=== PATIENT | female | born 1970 | race Caucasian/White ===

== ENCOUNTER → 2018-08-22 | Outpatient (CLI) | payer OTHER ==
[~2018-08-22] MED LIST: BUPR75 PO; METPRE4DP PO; Vistaril25 MG PO
== END | disposition home or self-care (01) ==
LOC: LAB SHORT 12:23 → PLD 12:23
DX: D06.1 Carcinoma in situ of exocervix (principal); R87.610 Atypical squamous cells of undetermined significance on cytologic smear of cervix (ASC-US); R87.810 Cervical high risk human papillomavirus (HPV) DNA test positive
CPT/HCPCS: 88305

== ENCOUNTER → 2018-09-26 | Outpatient (CLI) | payer OTHER | END | disposition home or self-care (01) | LOC: LAB SHORT 12:18 → PLD 12:18 | DX: R87.610 Atypical squamous cells of undetermined significance on cytologic smear of cervix (ASC-US) (principal); R87.810 Cervical high risk human papillomavirus (HPV) DNA test positive | CPT/HCPCS: 88305 ==

== ENCOUNTER → 2019-04-12 | Outpatient (CLI) | payer OTHER ==
[2019-04-16 14:06] LABS: HPV 16 Negative (Negative); HPV 18 Negative (Negative); HPV OTHER HR TYPES Negative (Negative)
== END | disposition home or self-care (01) ==
LOC: LAB 10:03 → LAB SHORT 10:03
PROVIDERS: Obstetrics & Gynecology
DX: R87.810 Cervical high risk human papillomavirus (HPV) DNA test positive (principal); R87.610 Atypical squamous cells of undetermined significance on cytologic smear of cervix (ASC-US)
CPT/HCPCS: 87624; 88142

== ENCOUNTER → 2019-08-29 | Outpatient (CLI) | payer OTHER ==
[2019-08-29 15:31] LABS: BASOPHILS ABSOLUTE AUTO 0.06 K/mm3 (0.00-0.23); BASOPHILS PERCENT AUTO 1 % (0-2); EOSINOPHILS ABSOLUTE AUTO 1.16 K/mm3 (0.00-0.68); EOSINOPHILS PERCENT AUTO 13 % (0-6); Hematocrit 41.2 % (33.0-51.0); Hemoglobin 14.4 g/dL (11.5-16.0); IMMATURE GRAN ABSOLUTE AUTO 0.05 K/mm3 (0.00-0.10); IMMATURE GRAN PERCENT AUTO 1 % (0-1); LYMPHOCYTES ABSOLUTE AUTO 2.31 K/mm3 (0.84-5.20); LYMPHOCYTES PERCENT AUTO 26 % (21-46); MONOCYTES ABSOLUTE AUTO 1.98 K/mm3 (0.16-1.47); MONOCYTES PERCENT AUTO 22 % (4-13); Mean Corpuscular HGB 35.9 pg (26.0-34.0); Mean Corpuscular Volume 103 fL (80-100); Mean Platelet Volume 10.4 fL (9.1-12.4); NEUTROPHILS ABSOLUTE AUTO 3.42 K/mm3 (1.96-9.15); NEUTROPHILS PERCENT AUTO 38 % (41-73); Platelet Count 261 K/mm3 (150-400); RDW Coefficient Variation 12.6 % (11.7-14.2); RDW Standard Deviation 47.7 fL (35.1-46.3); Red Blood Cell Count 4.01 M/mm3 (3.80-5.20); White Blood Cell Count 8.98 K/mm3 (4.00-11.30)
[2019-08-29 15:49] LABS: Alanine Aminotransfer (ALT/SGP 61 U/L (12-78); Albumin, Blood 4.3 g/dL (3.4-5.0); Alk Phos 81 U/L (40-126); Anion Gap 9 mmol/L (6-16); Aspartate Aminotrans (AST/SGOT 72 U/L (12-37); Bilirubin, Total 0.3 mg/dL (0.1-1.0); Blood Urea Nitrogen 6 mg/dL (8-24); Bun/Creatinine Ratio 9.7 (12.0-20.0); CO2, Blood 26 mmol/L (21-32); Calcium, Blood 9.2 mg/dL (8.5-10.1); Chloride, Blood 97 mmol/L (98-108); Creatinine, Blood 0.62 mg/dL (0.40-1.00); Globulin, Blood 4.1 g/dL (2.2-4.0); Glomerular Filtration Rate >60 (60-); Glucose, Blood 114 mg/dL (70-99); Potassium, Blood 3.5 mmol/L (3.5-5.5); Sodium, Blood 132 mmol/L (136-145); Total Protein, Blood 8.4 g/dL (6.4-8.2); Troponin I <0.017 ng/mL (0.000-0.040)
[2019-08-29 16:37] LABS: Thyroid Stimulating Hormone 1.721 uIU/mL (0.360-4.800)
== END | disposition home or self-care (01) ==
LOC: LAB EV 15:26 → LAB SHORT 15:26
PROVIDERS: Physician Assistant
DX: R07.89 Other chest pain (principal); R53.83 Other fatigue
CPT/HCPCS: 80053; 84443; 84484; 85025

== ENCOUNTER 2020-09-22 08:59 | Day surgery (SDC) | payer OTHER ==
[~2020-09-22] VITALS: Ht 167.6 cm; Wt 54.2 kg
[2020-09-22] MEDS ORDERED: LOSA50 PO (09:25)
[2020-09-22] MEDS ORDERED: OMEP20ER PO (09:25)
[2020-09-22] MEDS ORDERED: Aspir 8181 MG PO (09:26)
--- NOTE | 2020-09-22 11:03 | NUR ---
09/22/20 1103 Syl Moore PT. WITH EXP. WHEEZES T.O.. PT. IS A SMOKER & HAS A COUGH. PT. DENIES SOB. PT. ENC. TO STOP SMOKING, PT. VERBALIZES SHE HAS GOTTEN DOWN TO A HALF PACK OF CIGARETTES. PT. DENIES HAVING A SORE THROAT. PT. HAS CHRONIC BACK PAIN.
== END 2020-09-22 10:45 | disposition home or self-care (01) ==
LOC: ORSCSDS 08:59
PROVIDERS: Student in an Organized Health Care Education/Training Program
PROC: 0DB68ZX Excision of Stomach, Via Natural or Artificial Opening Endoscopic, Diagnostic (ICD-10-PCS; principal; 2020-09-22 10:30)
PROC: 0DB58ZX Excision of Esophagus, Via Natural or Artificial Opening Endoscopic, Diagnostic (ICD-10-PCS; principal; 2020-09-22 10:30)
DX: K22.70 Barrett's esophagus without dysplasia (principal); R13.10 Dysphagia, unspecified; K44.9 Diaphragmatic hernia without obstruction or gangrene; K29.70 Gastritis, unspecified, without bleeding; I10 Essential (primary) hypertension; F17.210 Nicotine dependence, cigarettes, uncomplicated; Z79.82 Long term (current) use of aspirin; Z79.899 Other long term (current) drug therapy
CPT/HCPCS: 88305; 88342; J2704; J7120

== ENCOUNTER → 2021-04-24 | Outpatient (CLI) | payer OTHER ==
[~2021-04-24] MED LIST changes: +Aspir 8181 MG PO; +LOSA50 PO; +OMEP20ER PO
[2021-04-24 12:50] LABS: Hematocrit 32.1 % (33.0-51.0); Hemoglobin 11.2 g/dL (11.5-16.0)
== END | disposition home or self-care (01) ==
LOC: LAB SHORT 12:45 → LAB 12:45
PROVIDERS: Chiropractor
DX: R04.0 Epistaxis (principal)
CPT/HCPCS: 85014; 85018

== ENCOUNTER 2022-05-27 09:44 | Inpatient (IN) | payer OTHER ==
[~2022-05-27 09:44] MED LIST changes: -FOLI1 PO; -Norco 5-325 Ta1 EACH PO; -ONDA4 PO; -PANT40 PO; -VITAMIN B-1100 MG PO
[2022-06-02] MEDS ORDERED: FOLI1 PO (12:17)
[2022-06-02] MEDS ORDERED: PANT40 PO (12:17)
[2022-06-02] MEDS ORDERED: ONDA4 PO (12:18)
[2022-06-02] MEDS ORDERED: Norco 5-325 Ta1 EACH PO (12:18)
[2022-06-02] MEDS ORDERED: VITAMIN B-1100 MG PO (12:18)
== END 2022-06-02 14:06 | disposition home or self-care (01) | DRG 871 ==
DX: A41.9 Sepsis, unspecified organism (principal); J18.9 Pneumonia, unspecified organism; K85.90 Acute pancreatitis without necrosis or infection, unspecified; E87.1 Hypo-osmolality and hyponatremia; N17.9 Acute kidney failure, unspecified; Z20.822 Contact with and (suspected) exposure to COVID-19; I10 Essential (primary) hypertension; Z23 Encounter for immunization; F10.20 Alcohol dependence, uncomplicated; I95.9 Hypotension, unspecified; K70.0 Alcoholic fatty liver; K22.70 Barrett's esophagus without dysplasia; E83.42 Hypomagnesemia; R91.1 Solitary pulmonary nodule; F17.210 Nicotine dependence, cigarettes, uncomplicated; Z71.6 Tobacco abuse counseling; Z98.51 Tubal ligation status; Z98.890 Other specified postprocedural states; Z79.82 Long term (current) use of aspirin; Z79.899 Other long term (current) drug therapy

== ENCOUNTER → 2022-05-27 | Outpatient (CLI) | payer OTHER ==
[~2022-05-27] MED LIST changes: +FOLI1 PO; +Norco 5-325 Ta1 EACH PO; +ONDA4 PO; +PANT40 PO; +VITAMIN B-1100 MG PO
[2022-05-27 08:44] LABS: BASOPHILS PERCENT AUTO 1 % (0-2); EOSINOPHILS ABSOLUTE AUTO 0.02 K/mm3 (0.00-0.68); EOSINOPHILS PERCENT AUTO 0 % (0-6); Hematocrit 39.8 % (33.0-51.0); Hemoglobin 14.5 g/dL (11.5-16.0); IMMATURE GRAN ABSOLUTE AUTO 0.36 K/mm3 (0.00-0.10); IMMATURE GRAN PERCENT AUTO 2 % (0-1); LYMPHOCYTES ABSOLUTE AUTO 1.33 K/mm3 (0.84-5.20); LYMPHOCYTES PERCENT AUTO 6 % (21-46); MONOCYTES ABSOLUTE AUTO 1.88 K/mm3 (0.16-1.47); MONOCYTES PERCENT AUTO 9 % (4-13); Mean Corpuscular HGB 36.4 pg (26.0-34.0); Mean Corpuscular HGB Conc 36.4 g/dL (31.5-36.5); Mean Corpuscular Volume 100 fL (80-100); Mean Platelet Volume 11.2 fL (9.1-12.4); NEUTROPHILS ABSOLUTE AUTO 18.13 K/mm3 (1.96-9.15); NEUTROPHILS PERCENT AUTO 83 % (41-73); Platelet Count 184 K/mm3 (150-400); RDW Coefficient Variation 12.2 % (11.7-14.2); RDW Standard Deviation 45.3 fL (35.1-46.3); Red Blood Cell Count 3.98 M/mm3 (3.80-5.20); White Blood Cell Count 21.82 K/mm3 (4.00-11.30)
[2022-05-27 09:00] LABS: Albumin, Blood 3.7 g/dL (3.4-5.0); Albumin/Globulin Ratio 0.8 (0.8-1.8); Bilirubin, Total 0.9 mg/dL (0.1-1.0); Bun/Creatinine Ratio 26.3 (12.0-20.0); Calcium, Blood 9.3 mg/dL (8.5-10.1); Creatinine, Blood 2.32 mg/dL (0.40-1.00); Globulin, Blood 4.6 g/dL (2.2-4.0); Total Protein, Blood 8.3 g/dL (6.4-8.2)
== END | disposition home or self-care (01) ==
LOC: LAB SHORT 08:39 → LAB 08:39
PROVIDERS: Physician Assistant
DX: R06.00 Dyspnea, unspecified (principal)
CPT/HCPCS: 80053; 83690; 84484; 85025

== ENCOUNTER 2022-06-28 00:55 | Emergency (ER) | payer OTHER ==
[~2022-06-28] VITALS: Ht 167.6 cm; Wt 56.2 kg
[~2022-06-28 00:55] MED LIST changes: +FOLI1 PO; +Norco 5-325 Ta1 EACH PO; +ONDA4 PO; +PANT40 PO; +VITAMIN B-1100 MG PO
[2022-06-28] MEDS ORDERED: Prednisone20 MG PO (02:50)
== END 2022-06-28 03:08 | disposition home or self-care (01) ==
LOC: ER 00:55
DX: L50.9 Urticaria, unspecified (principal); F17.210 Nicotine dependence, cigarettes, uncomplicated; Z79.82 Long term (current) use of aspirin; Z79.52 Long term (current) use of systemic steroids; Z79.899 Other long term (current) drug therapy
CPT/HCPCS: J2930

== ENCOUNTER → 2022-07-15 | Outpatient (CLI) | payer OTHER ==
[~2022-07-15] MED LIST changes: +Prednisone20 MG PO
[2022-07-22 11:11] LABS: M-SPIKE, % Not Observed % (Not Observed); PROTEIN,TOTAL,URINE 5.8 mg/dL (Not Estab.)
== END ==
LOC: LAB SHORT 10:45 → LAB 10:45 → LAB SHORT 11:23
PROVIDERS: Physician Assistant
DX: D72.829 Elevated white blood cell count, unspecified (principal)
CPT/HCPCS: 84156; 84166

== ENCOUNTER → 2022-11-18 | Outpatient (CLI) | payer OTHER ==
[2022-11-23 15:12] LABS: HPV 16 Negative (Negative); HPV 18 Negative (Negative); HPV OTHER HR TYPES Negative (Negative)
== END | disposition home or self-care (01) ==
LOC: LAB 09:33 → RAD SHORT 09:33
PROVIDERS: Obstetrics & Gynecology
DX: Z01.419 Encounter for gynecological examination (general) (routine) without abnormal findings (principal)
CPT/HCPCS: 87624; G0145

== ENCOUNTER 2023-05-03 17:04 | Emergency (ER) | payer OTHER ==
[~2023-05-03] VITALS: Ht 167.6 cm; Wt 54.4 kg
[2023-05-03] MEDS ORDERED: Percocet 5-3251 EACH PO (20:27)
[2023-05-03] MEDS ORDERED: ONDA4ODT MM (20:27)
[2023-05-03 21:05] VITALS: BP 128/81
== END 2023-05-03 21:06 | disposition home or self-care (01) ==
LOC: ER 17:04
DX: S32.592A Other specified fracture of left pubis, initial encounter for closed fracture (principal); S32.10XA Unspecified fracture of sacrum, initial encounter for closed fracture; F17.200 Nicotine dependence, unspecified, uncomplicated; W17.89XA Other fall from one level to another, initial encounter
CPT/HCPCS: 72192; 73502; 96374; 99284-25; A9270; J3010

== ENCOUNTER 2023-06-24 20:46 | Emergency (ER) | payer OTHER ==
[~2023-06-24] VITALS: Ht 167.6 cm; Wt 55.8 kg
[~2023-06-24 20:46] MED LIST changes: +ONDA4ODT MM; +Percocet 5-3251 EACH PO
[2023-06-25] MEDS ORDERED: Ibuprofen600 MG PO (02:14)
[2023-06-25 05:15] VITALS: BP 131/81
== END 2023-06-25 05:43 | disposition home or self-care (01) ==
LOC: ER 20:46
DX: S82.142A Displaced bicondylar fracture of left tibia, initial encounter for closed fracture (principal); W01.10XA Fall on same level from slipping, tripping and stumbling with subsequent striking against unspecified object, initial encounter; Z79.899 Other long term (current) drug therapy; Z79.82 Long term (current) use of aspirin; Z79.52 Long term (current) use of systemic steroids; F17.200 Nicotine dependence, unspecified, uncomplicated
CPT/HCPCS: 73564; 73590; 73700; 96374; 96375; 96376; 99284-25; J1885; J3010

== ENCOUNTER → 2024-01-05 | Outpatient (CLI) | payer OTHER ==
[~2024-01-05] MED LIST changes: +Ibuprofen600 MG PO
[2024-01-16 10:29] LABS: HPV HIGH RISK BY TMA Not Detected; HPV SOURCE Cervical/Vag
== END ==
LOC: LAB SHORT 09:28 → LAB 09:28
PROVIDERS: Obstetrics & Gynecology
DX: Z01.419 Encounter for gynecological examination (general) (routine) without abnormal findings (principal)
CPT/HCPCS: 87624; G0123

== ENCOUNTER 2024-10-17 06:16 | Day surgery (SDC) | payer OTHER ==
[2024-10-17] VITALS (10 sets, daily range): BP systolic 108–158; BP diastolic 73–94
[~2024-10-17 06:16] MED LIST changes: +CYCL0.05OP BOTHEYES; +LOSARTAN POTAS100 M1 PO
[2024-10-17] MEDS ORDERED: Lactated Ringer's 1,000 ML IV SCH (06:50)
[2024-10-17] MEDS ORDERED: CeFAZolin Sodium 2,000 MG in NS 100 ML IV SCH (06:50)
[2024-10-17] MEDS ORDERED: CeFAZolin Sodium 2,000 MG VIAL ONE (06:52)
[2024-10-17] MEDS ORDERED: Lidocaine HCl 1% 30 ML SDV ONE (06:56)
[2024-10-17] MEDS ORDERED: propofoL 60 ML IV ONE (07:10)
[2024-10-17] MEDS ORDERED: Bupivacaine 0.5% HCl 5 MG/ML 30MLVIAL ONE (07:27)
[2024-10-17] MEDS ORDERED: FentaNYL Citrate 50 MCG/ML 2 ML Injection ONE (07:34)
--- NOTE | 2024-10-17 07:34 | NUR ---
History, Chart, Medications and Allergies reviewed before start of procedure.Patient confirms NPO status and agrees with scheduled surgery. Pre-Op teaching done. Pt verbalizes understanding. AT BEDSIDE, PT TEARY EYED. PT LEFT DENTURES AT HOME
[2024-10-17] MEDS ORDERED: propofoL 20 ML IV ONE (07:53)
[2024-10-17] MEDS ORDERED: Dexamethasone Sod Phos 10 MG/ML 1ML VIAL ONE (07:59)
[2024-10-17] MEDS ORDERED: Ondansetron HCl 2 MG / ML 2ML Vial ONE (07:59)
[2024-10-17] MEDS ORDERED: OxyCODONE 5 mg/Acetamin 325 mg TABLET PO PRN ×2 (09:25→09:50)
[2024-10-17] MEDS ORDERED: Ondansetron HCl 2 MG / ML 2ML Vial IV PRN (09:30)
[2024-10-17] MEDS ORDERED: FentaNYL Citrate 50 MCG/ML 2 ML Injection IV PRN ×2 (09:30→09:35)
[2024-10-17] MEDS ORDERED: HYDROmorphone HCl/Pf 1MG SYR IV PRN ×2 (09:30→09:35)
--- NOTE | 2024-10-17 10:25 | NUR ---
REVIEWED DISCHARGE INSTRUCTIONS WITH PT AND HER SPOUSE NANE-BOTH VERBALIZE UNDERSTANDING. PT DISCHARGED TO HOME-OUT VIA WHEELCHAIR WITH RX, DISCHARGE INSTRUCTIONS, AND BELONGINGS ON HAND.
== END 2024-10-17 10:25 | disposition home or self-care (01) ==
LOC: ORSCMMR 06:16 → ORD 07:30 → ORSCMMR 07:30
DX: C34.90 Malignant neoplasm of unspecified part of unspecified bronchus or lung (principal); R91.8 Other nonspecific abnormal finding of lung field; J44.9 Chronic obstructive pulmonary disease, unspecified; I10 Essential (primary) hypertension; F17.210 Nicotine dependence, cigarettes, uncomplicated; Z79.82 Long term (current) use of aspirin; F32.A Depression, unspecified; F41.9 Anxiety disorder, unspecified; Z79.899 Other long term (current) drug therapy
CPT/HCPCS: 77001; 93005; 93010; A9270; C1788; J0690; J1100; J1642; J2405; J2704; J3010; J7120

== ENCOUNTER 2024-10-25 15:06 | Emergency (ER) | payer OTHER ==
[~2024-10-25] VITALS: Ht 167.6 cm; Wt 56.2 kg
[2024-10-25 19:34] LABS: BASOPHILS PERCENT AUTO 1 % (0-2); EOSINOPHILS ABSOLUTE AUTO 0.06 K/mm3 (0.00-0.68); EOSINOPHILS PERCENT AUTO 1 % (0-6); Hematocrit 32.7 % (33.0-51.0); IMMATURE GRAN ABSOLUTE AUTO 0.04 K/mm3 (0.00-0.10); IMMATURE GRAN PERCENT AUTO 1 % (0-1); LYMPHOCYTES PERCENT AUTO 25 % (21-46); MONOCYTES ABSOLUTE AUTO 0.76 K/mm3 (0.16-1.47); MONOCYTES PERCENT AUTO 10 % (4-13); Mean Corpuscular HGB 34.4 pg (26.0-34.0); Mean Corpuscular HGB Conc 33.6 g/dL (31.5-36.5); Mean Corpuscular Volume 102 fL (80-100); Mean Platelet Volume 9.1 fL (9.1-12.4); NEUTROPHILS ABSOLUTE AUTO 5.04 K/mm3 (1.96-9.15); NEUTROPHILS PERCENT AUTO 63 % (41-73); Platelet Count 331 K/mm3 (150-400); RDW Coefficient Variation 15.1 % (11.7-14.2); RDW Standard Deviation 57.1 fL (35.1-46.3)
[2024-10-25 19:42] LABS: Bun/Creatinine Ratio 20.3 (12.0-20.0); Calcium, Blood 8.9 mg/dL (8.5-10.1); Creatinine, Blood 0.69 mg/dL (0.40-1.00); Potassium, Blood 4.2 mmol/L (3.5-5.5)
[2024-10-25 20:06] VITALS: BP 121/86
== END 2024-10-25 20:07 | disposition home or self-care (01) ==
LOC: ER 15:06
PROVIDERS: Emergency Medicine
DX: Z45.2 Encounter for adjustment and management of vascular access device (principal); F17.200 Nicotine dependence, unspecified, uncomplicated; Z71.6 Tobacco abuse counseling; Z79.899 Other long term (current) drug therapy; Z79.1 Long term (current) use of non-steroidal anti-inflammatories (NSAID); Z79.890 Hormone replacement therapy
CPT/HCPCS: 71045; 80048; 85025; 99284-25

== ENCOUNTER 2024-11-21 21:31 | Inpatient (IN) | payer OTHER ==
[~2024-11-21] VITALS: Ht 165.1 cm; Wt 53.4 kg
[~2024-11-21 21:31] MED LIST changes: -LOSARTAN POTAS100 M1 PO
[2024-11-21] MEDS ORDERED: Ondansetron HCl 2 MG / ML 2ML Vial IV PRN ×2 (21:45→23:35)
[2024-11-21 21:51] LABS: BASOPHILS ABSOLUTE AUTO 0.07 K/mm3 (0.00-0.23); BASOPHILS PERCENT AUTO 0 % (0-2); EOSINOPHILS PERCENT AUTO 0 % (0-6); Hematocrit 29.5 % (33.0-51.0); Hemoglobin 10.4 g/dL (11.5-16.0); IMMATURE GRAN ABSOLUTE AUTO 1.11 K/mm3 (0.00-0.10); IMMATURE GRAN PERCENT AUTO 6 % (0-1); LYMPHOCYTES ABSOLUTE AUTO 0.47 K/mm3 (0.84-5.20); LYMPHOCYTES PERCENT AUTO 3 % (21-46); MONOCYTES ABSOLUTE AUTO 0.21 K/mm3 (0.16-1.47); MONOCYTES PERCENT AUTO 1 % (4-13); Mean Corpuscular HGB 35.4 pg (26.0-34.0); Mean Corpuscular HGB Conc 35.3 g/dL (31.5-36.5); Mean Corpuscular Volume 100 fL (80-100); Mean Platelet Volume 8.8 fL (9.1-12.4); NEUTROPHILS PERCENT AUTO 90 % (41-73); Platelet Count 231 K/mm3 (150-400); RDW Coefficient Variation 14.1 % (11.7-14.2); Red Blood Cell Count 2.94 M/mm3 (3.80-5.20); White Blood Cell Count 18.06 K/mm3 (4.00-11.30)
[2024-11-21 22:04] LABS: Albumin, Blood 3.2 g/dL (3.4-5.0); Albumin/Globulin Ratio 0.8 (0.8-1.8); Bilirubin, Total 0.2 mg/dL (0.1-1.0); Bun/Creatinine Ratio 21.5 (12.0-20.0); Calcium, Blood 7.5 mg/dL (8.5-10.1); Creatinine, Blood 0.61 mg/dL (0.40-1.00); Potassium, Blood 4.1 mmol/L (3.5-5.5); Total Protein, Blood 7.2 g/dL (6.4-8.2)
[2024-11-21] MEDS ORDERED: Morphine Sulfate 4 MG/1 ML Injection IV ONE (22:05)
[2024-11-21 22:26] LABS: BAND PERCENT MAN 2 % (0-8); BASOPHILS PERCENT MAN 0 % (0-2); EOSINOPHILS ABSOLUTE MAN 0.18 K/mm3 (0.00-0.68); EOSINOPHILS PERCENT MAN 1 % (0-6); LYMPHOCYTES ABSOLUTE MAN 0.72 K/mm3 (0.84-5.20); LYMPHOCYTES PERCENT MAN 4 % (21-46); METAMYELOCYTE ABSOLUTE MAN 0.18 K/mm3 (0.00-0.00); METAMYELOCYTE PERCENT MAN 1 % (0-0); MONOCYTES ABSOLUTE MAN 0.36 K/mm3 (0.16-1.47); MONOCYTES PERCENT MAN 2 % (4-13); MYELOCYTE ABSOLUTE MAN 0.36 K/mm3 (0.00-0.00); MYELOCYTE PERCENT MAN 2 % (0-0); NEUTROPHILS ABSOLUTE MAN 16.25 K/mm3 (1.96-9.15); SEG NEUTROPHILS PERCENT MAN 88 % (41-73); TOTAL CELLS COUNTED 100
[2024-11-21] MEDS ORDERED: Aspirin 325 MG Tab PO ONE (22:45)
[2024-11-21] MEDS ORDERED: Dose Adjust by Pharmacy XX STA (23:07)
[2024-11-21] MEDS ORDERED: Heparin Sodium 5000 Units/ML 1ML MDV IV ONE (23:10)
[2024-11-21] MEDS ORDERED: Heparin Sodium,Porcine/0.5 NS 500 ML IV SCH (23:10)
[2024-11-21] MEDS ORDERED: Morphine Sulfate 4 MG/1 ML Injection IV PRN (23:15)
[2024-11-21] MEDS ORDERED: Nitroglycerin 0.4 MG SUBL SL PRN (23:15)
[2024-11-21] MEDS ORDERED: Naloxone HCl 0.4MG / ML 1ML Vial IV PRN (23:15)
[2024-11-21] MEDS ORDERED: Acetaminophen 325 MG TABLET PO PRN (23:20)
[2024-11-21 23:24] LABS: Anti-Xa UFH, PHA Monitoring <0.10 IU/mL; International Normalized Ratio 1.03
[2024-11-21] MEDS ORDERED: NS 1,000 ML IV SCH (23:26)
[2024-11-22] VITALS (8 sets, daily range): BP systolic 108–149; BP diastolic 79–111
[2024-11-22 02:36] LABS: BASOPHILS ABSOLUTE AUTO 0.08 K/mm3 (0.00-0.23); BASOPHILS PERCENT AUTO 0 % (0-2); EOSINOPHILS PERCENT AUTO 0 % (0-6); Hematocrit 28.2 % (33.0-51.0); IMMATURE GRAN ABSOLUTE AUTO 0.89 K/mm3 (0.00-0.10); IMMATURE GRAN PERCENT AUTO 4 % (0-1); LYMPHOCYTES ABSOLUTE AUTO 0.66 K/mm3 (0.84-5.20); LYMPHOCYTES PERCENT AUTO 3 % (21-46); MONOCYTES ABSOLUTE AUTO 1.58 K/mm3 (0.16-1.47); MONOCYTES PERCENT AUTO 8 % (4-13); Mean Corpuscular HGB 35.2 pg (26.0-34.0); Mean Corpuscular HGB Conc 35.5 g/dL (31.5-36.5); Mean Corpuscular Volume 99 fL (80-100); Mean Platelet Volume 9.2 fL (9.1-12.4); NEUTROPHILS ABSOLUTE AUTO 17.46 K/mm3 (1.96-9.15); NEUTROPHILS PERCENT AUTO 85 % (41-73); Platelet Count 204 K/mm3 (150-400); RDW Coefficient Variation 13.8 % (11.7-14.2); RDW Standard Deviation 49.7 fL (35.1-46.3); Red Blood Cell Count 2.84 M/mm3 (3.80-5.20); White Blood Cell Count 20.67 K/mm3 (4.00-11.30)
[2024-11-22 02:48] LABS: Alanine Aminotransfer (ALT/SGP 18 U/L (12-78); Albumin/Globulin Ratio 0.8 (0.8-1.8); Alk Phos 81 U/L (50-136); Anion Gap 13 mmol/L (3-11); Aspartate Aminotrans (AST/SGOT 23 U/L (12-37); Bilirubin, Total 0.1 mg/dL (0.1-1.0); Blood Urea Nitrogen 12 mg/dL (8-24); Bun/Creatinine Ratio 21.4 (12.0-20.0); CHOL/HDL RATIO 1.7; CO2, Blood 20 mmol/L (21-32); Calcium, Blood 7.2 mg/dL (8.5-10.1); Chloride, Blood 101 mmol/L (98-108); Cholesterol 173 mg/dL (50-200); Creatinine, Blood 0.56 mg/dL (0.40-1.00); Globulin, Blood 3.6 g/dL (2.2-4.0); Glomerular Filtration Rate 107 (60-); Glucose, Blood 154 mg/dL (70-99); HDL Cholesterol 101 mg/dL (>39); LDL/HDL RATIO 0.6; Low Density Lipoprotein Chol 61 mg/dL (0-110); Potassium, Blood 3.9 mmol/L (3.5-5.5); Sodium, Blood 130 mmol/L (136-145); Thyroid Stimulating Hormone 0.481 uIU/mL (0.360-4.800); Total Protein, Blood 6.6 g/dL (6.4-8.2); Triglycerides 53 mg/dL (30-160); Very Low Density Lipoprot Chol 10 mg/dL (6-32)
[2024-11-22 03:18] LABS: Magnesium, Blood 0.5 mg/dL (1.6-2.4)
[2024-11-22] MEDS ORDERED: Magnesium Sulf 2 GM/Water 50ML 50 ML IV ONE (03:25)
[2024-11-22] MEDS ORDERED: Albuterol 2.5 MG/3 ML VIAL INH PRN (04:30)
[2024-11-22] MEDS ORDERED: Pantoprazole Sodium 40 MG Injection IV SCH (06:00)
--- NOTE | 2024-11-22 06:46 | NUR ---
SHIFT SUMMARY PT A/OX4, ABLE TO MAKE NEEDS KNOWN AND FOLLOWING COMMANDS. ARRIVED ACUTELY ETOH INTOXICATED. BP HYPERTENSIVE, ON TELE, SR TO ST AT 90-110S. PT REPORTING CHEST PRESSURE THAT RADIATES TO HER BACK, WORSE WITH MOVEMENT OR EXERTION. SPO2 > 92% ON RA, CURRENTLY GETTING TREATED FOR LUNG CA. MAGNESIUM CRITICALLY LOW AT 0.5, MEDICATED PER EMAR. HOSPITALIST FEELS CARDIOLOGY CONSULT NOT NEEDED AT THIS TIME GIVEN MAG LEVEL. HEPARIN STILL INFUSING PER EMAR. TRENDING TROPONINS. 1P ASSIST TO [facility]. NO SIGNIFICANT EVENTS SINCE ADMISSION. WILL REPORT TO ONCOMING NURSE.
--- NOTE | 2024-11-22 06:46 | NUR ---
THIS RN HAS REVIEWED AUTO CRANE DRIVER'S DOCUMENTATION AND AGREES.
[2024-11-22] MEDS ORDERED: Clarify Drug Order XX ONE (07:00)
[2024-11-22 07:03] LABS: Magnesium, Blood 1.8 mg/dL (1.6-2.4); Percent Saturation 36.2 % (15.0-50.0)
[2024-11-22] MEDS ORDERED: Atorvastatin 40 MG Tab PO SCH (09:00)
[2024-11-22] MEDS ORDERED: Docusate Sodium 100 MG Cap PO SCH (09:00)
[2024-11-22] MEDS ORDERED: Losartan Potassium 50 MG Tab PO SCH (09:00)
[2024-11-22] MEDS ORDERED: Aspirin 81 MG Chew PO SCH (09:00)
[2024-11-22] MEDS ORDERED: LORazepam 2 MG/ML 1ML Injection IV PRN (12:20)
[2024-11-22] MEDS ORDERED: LORazepam 1 MG Tab PO PRN (12:20)
[2024-11-22] MEDS ORDERED: Thiamine HCl 100 MG Tab PO SCH (13:00)
[2024-11-22] MEDS ORDERED: Folic Acid 1 MG TAB PO SCH (13:00)
[2024-11-22] MEDS ORDERED: Colchicine 0.6 MG TAB PO SCH (13:00)
--- NOTE | 2024-11-22 18:10 | NUR ---
END OF SHIFT SUMMARY REPORT A&OX4, GCS15, PUPILS PERRLA. MOTOR FUNCTION INTACT. VERBAL RESPONSES TO QUESTIONS ARE APPROPRIATE. PT ADMITS TO ETOH USE, LAST DRINK WAS 11/21/2024 APROX 1330; REPORTS HAVING ABOUT 4OZ OF TEQUILA. CIWA SCORES MAINTAINED AT 3. PT IS SR-ST 90'S - 110'S. PERICARDIAL FRICTION RUB HEARD ON AUSCULTATION. PT REPORTS INTERMITTENT CHEST PAIN THAT IS RESOLVED WITH MEDICATIONS ORDERED IN EMAR, REPOSITIONING, AND DISTRACTION. ATTEMPTED TO APPLY SUPPLEMENTAL O2 VIA NC TO HELP WITH CHEST PAIN BUT PT DID NOT TOLERATE THE SMELL OF CANNULA. PT O2 MAINTAINED AT >93% RA. PT HAS EXPIRATORY WHEEZE HEARD ON AUSCULTATION OF LUNGS. PT HAS A NONPRODUCTIVE WET COUGH. PT IS A 1P SBA AND USES THE COMMODE AT BEDSIDE. ECHO AND CARDIOLOGY CONSULT COMPLETED TODAY 11/22/2024. CARDIOLOGY STATES NO SURGICAL INTERVENSION AND PT WAS STARTED ON MEDICAITONS FOR PERICARDITIS. BED IS IN THE LOWEST POSITION WITH CALL LIGHT IN REACH AND BED ALARM ON. SEE NOTES FOR ANY UPDATES.
[2024-11-23] VITALS (7 sets, daily range): BP systolic 105–139; BP diastolic 75–100
[2024-11-23 04:15] LABS: BASOPHILS ABSOLUTE AUTO 0.02 K/mm3 (0.00-0.23); BASOPHILS PERCENT AUTO 0 % (0-2); EOSINOPHILS PERCENT AUTO 0 % (0-6); Hematocrit 28.8 % (33.0-51.0); IMMATURE GRAN ABSOLUTE AUTO 0.24 K/mm3 (0.00-0.10); IMMATURE GRAN PERCENT AUTO 3 % (0-1); LYMPHOCYTES ABSOLUTE AUTO 1.06 K/mm3 (0.84-5.20); LYMPHOCYTES PERCENT AUTO 12 % (21-46); MONOCYTES ABSOLUTE AUTO 0.53 K/mm3 (0.16-1.47); MONOCYTES PERCENT AUTO 6 % (4-13); Mean Corpuscular HGB 35.7 pg (26.0-34.0); Mean Corpuscular HGB Conc 34.7 g/dL (31.5-36.5); Mean Corpuscular Volume 103 fL (80-100); Mean Platelet Volume 9.4 fL (9.1-12.4); NEUTROPHILS ABSOLUTE AUTO 7.39 K/mm3 (1.96-9.15); NEUTROPHILS PERCENT AUTO 80 % (41-73); Platelet Count 167 K/mm3 (150-400); RDW Coefficient Variation 14.3 % (11.7-14.2); RDW Standard Deviation 53.3 fL (35.1-46.3); White Blood Cell Count 9.24 K/mm3 (4.00-11.30)
[2024-11-23 04:57] LABS: Albumin, Blood 2.5 g/dL (3.4-5.0); Albumin/Globulin Ratio 0.8 (0.8-1.8); Bilirubin, Total 0.4 mg/dL (0.1-1.0); Bun/Creatinine Ratio 22.3 (12.0-20.0); Calcium, Blood 7.5 mg/dL (8.5-10.1); Creatinine, Blood 0.58 mg/dL (0.40-1.00); Globulin, Blood 3.2 g/dL (2.2-4.0); Potassium, Blood 4.6 mmol/L (3.5-5.5); Total Protein, Blood 5.7 g/dL (6.4-8.2)
--- NOTE | 2024-11-23 06:03 | NUR ---
SHIFT SUMMARY. PATIENT A&O X4. VITAL SIGNS STABLE. PATIENT STATED HAVING CHEST PAIN AND SHORTNESS OF BREATH, MEDICATED PER EMAR, RT CONTACTED FOR BREATHING TREATMENTS. PATIENT ON ROOM AIR.
[2024-11-23] MEDS ORDERED: Cefdinir 300 MG Cap PO SCH (09:00)
[2024-11-23] MEDS ORDERED: Magnesium Sulf 2 GM/Water 50ML 50 ML IV ONE (10:35)
--- NOTE | 2024-11-23 11:20 | NUR ---
Spiritual care visit conducted. The patient is sitting up in bed and alert. She tells me about her prognosis and the fears that come with that. We then spent time laughing as we discussed the joys of [employer] ownership and the importance of opening each day with a sense of adventure and expectancey. We discuss what a wonderful would look like and the pieces she would put in place to make the most of each day. She states that she will hold Chemotherapy lightly in terms of it being "the answer" for longer life and says that she will focus more on the quality of the days she has. I provided therapeutic listening and prayer. The patient responded well and showed signs of an elevated mood and a greater hope for the future.
[2024-11-23] MEDS ORDERED: OxyCODONE HCL 5 MG TAB PO PRN (16:35)
--- NOTE | 2024-11-23 17:02 | NUR ---
SHIFT NOTE: PT A/OX4 ABLE TO MAKE HER NEEDS KNOWN. SHE IS IN SR/ST. SHE AMBULATED THE UNIT THIS AM WITH A STAFF MEMBER AND HER HR INCREASED TO 140S. SHE IS ON RA WITH NO REPORTS OF SOB. SHE USES THE [facility] IND. SHE WAS TREATED FOR PAIN PER EMAR. PLAN IS TO TRANSITION TO PO PAIN MANAGEMENT. CARE CONTINUES
[2024-11-24] VITALS: BP 134/101
[2024-11-24 03:27] VITALS: BP 137/94
[2024-11-24 03:39] LABS: BASOPHILS ABSOLUTE AUTO 0.02 K/mm3 (0.00-0.23); BASOPHILS PERCENT AUTO 0 % (0-2); EOSINOPHILS ABSOLUTE AUTO 0.03 K/mm3 (0.00-0.68); EOSINOPHILS PERCENT AUTO 0 % (0-6); Hemoglobin 10.1 g/dL (11.5-16.0); IMMATURE GRAN ABSOLUTE AUTO 0.07 K/mm3 (0.00-0.10); IMMATURE GRAN PERCENT AUTO 1 % (0-1); LYMPHOCYTES ABSOLUTE AUTO 1.39 K/mm3 (0.84-5.20); LYMPHOCYTES PERCENT AUTO 18 % (21-46); MONOCYTES ABSOLUTE AUTO 0.23 K/mm3 (0.16-1.47); MONOCYTES PERCENT AUTO 3 % (4-13); Mean Corpuscular HGB 35.3 pg (26.0-34.0); Mean Corpuscular HGB Conc 34.8 g/dL (31.5-36.5); Mean Corpuscular Volume 101 fL (80-100); Mean Platelet Volume 9.5 fL (9.1-12.4); NEUTROPHILS ABSOLUTE AUTO 5.82 K/mm3 (1.96-9.15); NEUTROPHILS PERCENT AUTO 77 % (41-73); Platelet Count 152 K/mm3 (150-400); RDW Coefficient Variation 14.2 % (11.7-14.2); RDW Standard Deviation 51.8 fL (35.1-46.3); Red Blood Cell Count 2.86 M/mm3 (3.80-5.20); White Blood Cell Count 7.56 K/mm3 (4.00-11.30)
[2024-11-24 03:59] LABS: Albumin, Blood 2.6 g/dL (3.4-5.0); Albumin/Globulin Ratio 0.8 (0.8-1.8); Bilirubin, Total 0.3 mg/dL (0.1-1.0); Bun/Creatinine Ratio 17.4 (12.0-20.0); Calcium, Blood 7.7 mg/dL (8.5-10.1); Creatinine, Blood 0.52 mg/dL (0.40-1.00); Globulin, Blood 3.2 g/dL (2.2-4.0); Magnesium, Blood 1.1 mg/dL (1.6-2.4); Potassium, Blood 4.8 mmol/L (3.5-5.5); Total Protein, Blood 5.8 g/dL (6.4-8.2)
[2024-11-24] MEDS ORDERED: Magnesium Sul 4 GM/Water100 ML 100 ML IV ONE (04:20)
[2024-11-24] MEDS ORDERED: Magnesium Sulf 2 GM/Water 50ML 50 ML IV SCH (04:30)
--- NOTE | 2024-11-24 06:16 | NUR ---
SHIFT SUMMARY. PATIENT A&O X4. VITAL SIGNS STABLE. PATIENT ON ROOM AIR. MORNING LABS SHOWED A MAGNESIUM OF 1.1, RESIDENT NOTIFIED. PATIENT STATED FEELING CHEST PAIN, MEDICATED PER EMAR. CURRENT PAIN REGIMEN TOLERATED WELL.
[2024-11-24 07:31] VITALS: BP 126/91
[2024-11-24 11:30] VITALS: BP 121/85
[2024-11-24] MEDS ORDERED: COLCRYS0.6 M1 PO (15:38)
[2024-11-24] MEDS ORDERED: OXAYDO5 M1 PO (15:39)
[2024-11-24] MEDS ORDERED: ALBU8HFA2 INH (15:47)
[2024-11-24] MEDS ORDERED: IBUP600 PO (15:48)
--- NOTE | 2024-11-24 16:41 | NUR ---
DISCHARGE NOTE: PT DISCHARGED HOME WITH TO DRIVE HOME. PT STATED UNDERSTANDING OF DISCHARGE INSTRUCTIONS. MEDICATIONS SENT TO [facility], HARD SCRIPT FOR OXY HANDED TO PT. ALL QUESTIONS ANSWERED AT TIME OF DISCHARGE.
== END 2024-11-24 16:52 | disposition home or self-care (01) | DRG 281 ==
LOC: ER 21:31 → ERHOLD 23:11 → PCU 23:11
PROVIDERS: Emergency Medicine; Internal Medicine; Student in an Organized Health Care Education/Training Program; ADMIT Student in an Organized Health Care Education/Training Program
DX: I30.8 Other forms of acute pericarditis (principal); C34.81 Malignant neoplasm of overlapping sites of right bronchus and lung; I21.A1 Myocardial infarction type 2; C34.90 Malignant neoplasm of unspecified part of unspecified bronchus or lung; E22.2 Syndrome of inappropriate secretion of antidiuretic hormone; I50.22 Chronic systolic (congestive) heart failure; F10.129 Alcohol abuse with intoxication, unspecified; I11.0 Hypertensive heart disease with heart failure; D53.9 Nutritional anemia, unspecified; E88.89 Other specified metabolic disorders; K22.70 Barrett's esophagus without dysplasia; F17.210 Nicotine dependence, cigarettes, uncomplicated; T45.1X5A Adverse effect of antineoplastic and immunosuppressive drugs, initial encounter; L65.8 Other specified nonscarring hair loss; Y90.8 Blood alcohol level of 240 mg/100 ml or more; Z88.8 Allergy status to other drugs, medicaments and biological substances; Z79.82 Long term (current) use of aspirin; Z79.899 Other long term (current) drug therapy; Z90.89 Acquired absence of other organs; Z98.890 Other specified postprocedural states; Z98.51 Tubal ligation status; E83.42 Hypomagnesemia
CPT/HCPCS: 36415; 71046; 80053; 80061; 80320; 82607; 82728; 82746; 82947; 83036; 83540; 83550; 83690; 83735; 83930; 83935; 84300; 84443; 84484; 85025; 85520; 85610; 85730; 93005; 93010; 93306; 94640; 94664; 94762; 96374; 96375; 99285-25; A9270; J1644; J2270; J2405; J2470; J3475; J7030

== ENCOUNTER 2025-02-03 00:49 | Day surgery (SDC) | payer OTHER ==
[~2025-02-03 00:49] MED LIST changes: +ALBU8HFA2 INH; +COLCRYS0.6 M1 PO; +IBUP600 PO; +OXAYDO5 M1 PO
[2025-02-03] MEDS ORDERED: NS 250 ML IV SCH (08:00)
[2025-02-03 09:28] VITALS: BP 108/76
[2025-02-03 09:46] VITALS: BP 99/73
[2025-02-03 10:47] VITALS: BP 122/73
[2025-02-03 11:19] VITALS: BP 127/78
--- NOTE | 2025-02-03 11:45 | NUR ---
PT ESCORTED TO ADMITTING VIA WHEELCHAIR BY RN. PT TRANSFERRED TO PRIVATE CAR WITH ALL BELONGINGS
== END 2025-02-03 11:27 | disposition home or self-care (01) ==
LOC: ATC 00:49
DX: C34.81 Malignant neoplasm of overlapping sites of right bronchus and lung (principal); I10 Essential (primary) hypertension; K70.0 Alcoholic fatty liver; F17.210 Nicotine dependence, cigarettes, uncomplicated; Z79.82 Long term (current) use of aspirin; Z79.899 Other long term (current) drug therapy
CPT/HCPCS: 36415; 36430; 86850; 86900; 86901; 86923; J7050; P9016